=== PATIENT | male | born 1980 | race Two or more races ===

== ENCOUNTER 2018-07-30 23:32 | Emergency (ER) | payer MEDICAID ==
[~2018-07-30] VITALS: Ht 160 cm; Wt 77.1 kg
[2018-07-31 00:16] VITALS: BP 159/92
== END 2018-07-31 02:12 | disposition left against medical advice (07) ==
LOC: ER 23:41
DX: R50.9 Fever, unspecified (principal); R21 Rash and other nonspecific skin eruption; Z53.21 Procedure and treatment not carried out due to patient leaving prior to being seen by health care provider